=== PATIENT | female | born 1950 | race African-American/Black ===

== ENCOUNTER 2016-10-12 19:17 | Emergency (ER) | payer OTHER ==
[~2016-10-12] VITALS: Ht 157.5 cm; Wt 98.4 kg
--- NOTE | ~2016-10-12 | CR63 ---
[facility] A Service of [facility] & [facility] / [facility] RADIOLOGY TEXT RESULTS PATIENT: JOHAN PENNY LOCATION: SED : 52 UNIT #: [id number] AGE: [address]: Grant Oliveira SEX: F ORDER DR: [id number] [address] [address] [id number] MR#: [id number] Acc #: [id number] NAME: JOHAN PENNY : 1950 SEX: F STUDY DATE/TIME: 10/12/2016 20:36 UNIT: SED ROOM: STUDY DESCRIPTION: CR Chest 2 View Attending Physician: Grant Oliveira P.A.-C. Ordering Physician: Grant Oliveira P.A.-C. Primary Care Physician: Vladislav Pagan M.D. MEDICAL IMAGING REPORT This report is preliminary unless electronic signature is present. EXAM Chest x-ray 10/12/2016 HISTORY 65-year-old female in the ED complaining of 1-day history of cough, congestion, sore throat and headache. TECHNIQUE PA and lateral upright chest series. FINDINGS The exam shows no active disease in the chest. Low lung volumes with chronic scarring in the left lateral lung base. No visible acute pulmonary infiltrate. Mild cardiomegaly with normal pulmonary vascularity. No change since 03/31/2016 and 01/25/2016. IMPRESSION No active disease. Dictated by... Lawson Trejo M.D. THIS IS AN ELECTRONICALLY VERIFIED REPORT Lawson Trejo M.D. at 10/13/2016 9:47 AM BALBINA/shruti TD: 10/13/2016 08:03 JOB #: [id number] MEDICAL IMAGING REPORT Page 1 of 1
[~2016-10-12 19:17] MED LIST: ADVAIR 250-501 EAC1; ALBUTEROL17 GM INH; ALPRAZOLAM OD0.25 MG; ASPIRIN81 MG; BROMFED DM COU118 ML PO; CALCIUM1 TAB.CHEW; COZAAR100 MG; DESYREL100 MG; IRON1 TAB; MELOXICAM15 MG; NILSTAT; NORVASC10 MG; OMEPRAZOLE40 M1; OMNICEF300 M1 PO; PROVENTIL0.83 MG/ML; SERTRALINE HCL100 M1; TIZANIDINE HCL4 M1; TYLENOL EXTRA500 M1; ULTRAM; VITAMIN B122500 MC1
[2016-10-12] MEDS ORDERED: HCTZ (19:31)
== END 2016-10-12 21:34 | disposition home or self-care (01) ==
LOC: SED 19:17
DX: J20.9 Acute bronchitis, unspecified (principal); J02.9 Acute pharyngitis, unspecified; I10 Essential (primary) hypertension; J44.9 Chronic obstructive pulmonary disease, unspecified; Z86.73 Personal history of transient ischemic attack (TIA), and cerebral infarction without residual deficits; Z88.0 Allergy status to penicillin
CPT/HCPCS: 71020; 94640; 99284